=== PATIENT | male | born 1970 | race Caucasian/White ===

== ENCOUNTER 2017-05-30 09:16 | Emergency (ER) | payer OTHER ==
[~2017-05-30] VITALS: Ht 188 cm; Wt 95.0 kg
[2017-05-30] MEDS ORDERED: morphine 4 MG/ML VIAL IV STA (09:18)
[2017-05-30] MEDS ORDERED: ONDANSETRON 4 MG INJ IV STA (09:18)
[2017-05-30] MEDS ORDERED: SOD CHLORIDE 0.9% 1,000 ML IV STA (09:18)
[2017-05-30 09:37] VITALS: Ht 188 cm; Wt 95.0 kg
[2017-05-30] MEDS ORDERED: ARIP10TA13 PO (09:48)
[2017-05-30 10:08] LABS: ADD UMIC NO; UR ASCORBIC ACID NEGATIVE (NEGATIVE); UR BILIRUBIN (Dip) NEGATIVE (NEGATIVE); UR BLOOD (Dip) NEGATIVE (NEGATIVE); UR CLARITY CLEAR (CLEAR); UR COLOR YELLOW (YELLOW); UR GLUCOSE (Dip) NEGATIVE (NEGATIVE); UR KETONES (Dip) 1+ mg/dL (NEGATIVE); UR LEUKOCYTE ESTERASE (Dip) NEGATIVE Leu/ul (NEGATIVE); UR NITRITE (Dip) NEGATIVE (NEGATIVE); UR TOTAL PROTEIN (Dip) NEGATIVE (NEGATIVE); UR UROBILINOGEN (Dip) NEGATIVE (NEGATIVE)
[2017-05-30 10:12] LABS: BASOPHIL # 0.1 10^3/ul (0.0-0.1); BASOPHILS % 0.7 % (0.0-2.0); EOSINOPHILS # 0.1 10^3/ul (0.0-0.5); EOSINOPHILS % 0.8 % (0.0-7.0); HEMATOCRIT 46.5 % (42.0-52.0); HEMOGLOBIN 15.9 g/dl (14.0-18.0); LYMPHOCYTES # 1.5 10^3/ul (0.8-2.9); LYMPHOCYTES % 17.5 % (15.0-51.0); MEAN CORPUSCULAR HEMOGLOBIN 30.2 pg (29.0-33.0); MEAN CORPUSCULAR HGB CONC 34.2 g/dl (32.0-37.0); MEAN CORPUSCULAR VOLUME 88.2 fl (82.0-101.0); MONOCYTE # 0.6 10^3/ul (0.3-0.9); MONOCYTES % 6.6 % (0.0-11.0); NEUTROPHIL # 6.5 10^3/ul (1.6-7.5); NEUTROPHILS % 74.1 % (39.0-77.0); PLATELET COUNT 300 10^3/UL (140-415); RED BLOOD COUNT 5.27 10^6/ul (4.70-6.10); WHITE BLOOD COUNT 8.8 10^3/ul (4.8-10.8)
--- NOTE | 2017-05-30 10:43 | RADRPT ---
PROCEDURE: CT Abdomen and Pelvis without contrast. CLINICAL INDICATION: Abdominal pain TECHNIQUE: CT scan of the abdomen and pelvis was performed on a multidetector high-resolution CT s canner without intravenous contrast. Coronal and sagittal reformatted images were obtained from the axial source images. Images were reviewed on a high-resolution PACS workstation. The total exam CTD I equals 14mGy and the total exam DLP equals 878mGy-cm. One or more of the following dose reduction techniques were used: Automated exposure control, Adjustment of the mA and/or kV according to patien t size, and/or use of iterative reconstruction technique. DICOM images are available. COMPARISON: None. FINDINGS: Evaluation of the solid organs is limited given the lack of intravenous contrast administration. Bibasilar atelectasis. The unenhanced liver, pancreas, spleen, and adrenals are grossly unremarkable. No focal pericholecystic inflammatory changes. No hydronephrosis. No renal or ureteral stone. No bowel obstruction. The appendix is not visualized but there is no focal inflammatory stranding i n the right lower quadrant. No significant retroperitoneal lymphadenopathy or evidence of pneumoperitoneum. Central prostate trisha cifications. Prominent fat and vessel containing left inguinal hernia with inflammatory stranding and loculated f luid. Small right fat containing inguinal hernia. IMPRESSION: Prominent fat and vessel containing left inguinal hernia with inflammatory stranding and loculated f luid concerning for a strangulated hernia. No evidence of bowel herniation, bowel obstruction, or appendicitis. RPTAT: AA .Mehdi Knapp MD, Date Time Electronically viewed and signed by .Mehdi Knapp MD, MD on 05/30/2017 10:42 .T/
[2017-05-30 10:46] LABS: ALBUMIN 4.2 g/dl (3.3-4.9); ALBUMIN/GLOBULIN RATIO 1.16; BILIRUBIN,INDIRECT 0.5 mg/dl (0-1.1); BILIRUBIN,TOTAL 0.5 mg/dl (0.2-1.3); CALCIUM 10.1 mg/dl (8.4-10.2); CREATININE 1.08 mg/dl (0.61-1.24); POTASSIUM 4.2 mmol/L (3.5-5.1); TOTAL PROTEIN 7.8 g/dl (6.1-8.1)
[2017-05-30] MEDS ORDERED: HYDR-902 PO (11:13)
[2017-05-30] MEDS ORDERED: ONDA4TAB14 PO (11:13)
[2017-05-30 11:49] VITALS: BP 132/77; PULSE 94; RESP 18
--- NOTE | 2017-05-30 11:59 | ERD ---
ER Documentation Chief Complaint Chief Complaint NAUSEA VOMITING STARTED TODAY.LEFT GROIN PAIN HPI Patient is a 47-year-old male with hernia who presents with abdominal pain. The patient was brought in by ambulance. He had subjective fever and sweats. He had vomiting and diarrhea as well as abdominal pain which started 1.5 hours ago. He said that it is from a hernia in his left inguinal region which he has had for years. He has had no treatment as of yet. He said that he used meth 48 hours ago. Upon review of old medical records this is the patient's fifth visit to the ER since 2006. He does not currently have a primary doctor. ROS All systems reviewed and are negative except as per history of present illness. Medications Home Meds Active Scripts Ondansetron (Ondansetron Odt) 4 Mg Tab.rapdis, 4 MG PO Q6H Y for NAUSEA AND/OR VOMITING, #10 TAB Prov:WINSTON POON MD 05/30/17 Hydrocodone/Acetaminophen ([place] 10-325 Tablet) 1 Each Tablet, 1 TAB PO Q6H Y for PAIN, #7 TAB Prov:WINSTON POON MD 05/30/17 Reported Medications Aripiprazole* (Abilify*) 10 Mg Tablet, 10 MG PO DAILY, #30 TAB 05/30/17 Allergies Allergies: Coded Allergies: No Known Drug Allergies (Verified Allergy, Unknown, 05/30/17) PMhx/Soc History of Surgery: Yes (R ARM,RIGHT GROIN HERNIA REPAIR) Anesthesia Reaction: No Hx Neurological Disorder: No Hx Respiratory Disorders: No Hx Cardiac Disorders: No Hx Psychiatric Problems: No Hx Miscellaneous Medical Probl: Yes (HEP C) Hx Alcohol Use: Yes Hx Substance Use: Yes Hx Tobacco Use: Yes Smoking Status: Current some day smoker FmHx Family History: No diabetes Physical Exam Vitals Vital Signs Date Time Temp Pulse Resp B/P Pulse Ox O2 Delivery O2 Flow Rate FiO2 05/30/17 11:49 94 18 132/77 98 Room Air 05/30/17 09:37 98.7 71 18 133/89 98 Physical Exam Const: Moderate distress secondary to pain Head: Atraumatic Eyes: Normal Conjunctiva ENT: Normal External Ears, Nose and Mouth. Neck: Full range of motion..~ No meningismus. Resp: Clear to auscultation bilaterally Cardio: Regular rate and rhythm, no murmurs Abd: Inguinal hernia in the left groin which is easily reducible with no color changes Skin: No petechiae or rashes Back: No midline or flank tenderness Ext: No cyanosis, or edema Neur: Awake and alert Psych: Normal Mood and Affect Result Diagram: 05/30/17 0959 05/30/17 0959 Results 24 hrs Laboratory Tests Test 05/30/17 09:59 05/30/17 10:00 White Blood Count 8.810^3/ul Red Blood Count 5.2710^6/ul Hemoglobin 15.9g/dl Hematocrit 46.5% Mean Corpuscular Volume 88.2fl Mean Corpuscular Hemoglobin 30.2pg Mean Corpuscular Hemoglobin Concent 34.2g/dl Red Cell Distribution Width 12.0% Platelet Count 64818^3/UL Mean Platelet Volume 9.0fl Neutrophils % 74.1% Lymphocytes % 17.5% Monocytes % 6.6% Eosinophils % 0.8% Basophils % 0.7% Nucleated Red Blood Cells % 0.0/100WBC Neutrophils # 6.510^3/ul Lymphocytes # 1.510^3/ul Monocytes # 0.610^3/ul Eosinophils # 0.110^3/ul Basophils # 0.110^3/ul Nucleated Red Blood Cells # 0.010^3/ul Sodium Level 145mmol/L Potassium Level 4.2mmol/L Chloride Level 107mmol/L Carbon Dioxide Level 24mmol/L Anion Gap 18 Blood Urea Nitrogen 21mg/dl Creatinine 1.08mg/dl Glucose Level 120mg/dl Calcium Level 10.1mg/dl Total Bilirubin 0.5mg/dl Direct Bilirubin 0.00mg/dl Indirect Bilirubin 0.5mg/dl Aspartate Amino Transf (AST/SGOT) 28IU/L Alanine Aminotransferase (ALT/SGPT) 50IU/L Alkaline Phosphatase 83IU/L Total Protein 7.8g/dl Albumin 4.2g/dl Globulin 3.60g/dl Albumin/Globulin Ratio 1.16 Lipase 90U/L Urine Color YELLOW Urine Clarity CLEAR Urine pH 5.0 Urine Specific [place] 1.020 Urine Ketones 1+mg/dL Urine Nitrite NEGATIVEmg/dL Urine Bilirubin NEGATIVEmg/dL Urine Urobilinogen NEGATIVEmg/dL Urine Leukocyte Esterase NEGATIVELeu/ul Urine Hemoglobin NEGATIVEmg/dL Urine Glucose NEGATIVEmg/dL Urine Total Protein NEGATIVEmg/dl Current Medications Medications (Trade) Dose Ordered Sig/Alonzo Route PRN Reason Start Time Stop Time Status Last Admin Dose Admin Sodium Chloride (NS) 1,000 ml @ 1,000 mls/hr Q1H STAT IV 05/30/17 09:18 05/30/17 10:17 DC 05/30/17 09:57 Morphine Sulfate (morphine) 4 mg ONCE STAT IV 05/30/17 09:18 05/30/17 09:20 DC 05/30/17 09:56 Ondansetron HCl (Zofran Inj) 4 mg ONCE STAT IV 05/30/17 09:18 05/30/17 09:20 DC 05/30/17 09:56 Procedures/MDM CT shows a possible strangulate hernia per radiology. Smoking Cessation Therapy: Pt. was lectured for greater than 3 minutes on the health risks of continued smoking and the benefits of cessation. Patient is a 47-year-old male with previous hernia who presents with abdominal pain and vomiting. CT scan showed a possible strangulate hernia but I was easily able to reduce the hernia at the bedside and there is no sign of strangulation. He was given pain and nausea medicine as well as fluids and feels much better. He has no complaints at this time and he was easily able to walk out of the emergency department. He will be given a prescription for [place] and Zofran but will need to follow-up with Dr. Martinez from surgery for elective hernia repair. I doubt bowel obstruction, strangled hernia, or appendicitis. Departure Diagnosis: Primary Impression: Hernia Additional Impression: Nausea and vomiting Vomiting type: unspecified Vomiting Intractability: non-intractable Qualified Code: R11.2 - Non-intractable vomiting with nausea, unspecified vomiting type Condition: Fair Patient Instructions: Nausea and Vomiting-Adult, Hernia (Inguinal, Ventral, Umbilical) Referrals: SADIQ MARTINEZ MD Additional Instructions: SPECIALIST: YOU HAVE A MEDICAL CONDITION WHICH REQUIRES YOU TO SEE A SPECIALIST WITHIN THE NEXT 1-2 DAYS. PLEASE FOLLOW UP WITH YOUR PRIMARY PHYSICIAN FOR REFFERAL.IF YOU DO NOT HAVE A PRIMARY CARE PHYSICIAN AND/OR YOU CAN NOT AFFORD TO SEE A PHYSICIAN THE FOLLOWING RESOURCES HAVE BEEN SUPPLIED TO YOU. IT IS YOUR RESPONSIBILITY TO BE SEEN BY THE SPECIALIST WINSTON POON MD May 30, 2017 11:59
== END 2017-05-30 11:51 | disposition home or self-care (01) ==
LOC: E/R 09:16
DX: K40.90 Unilateral inguinal hernia, without obstruction or gangrene, not specified as recurrent (principal); R11.2 Nausea with vomiting, unspecified; F17.210 Nicotine dependence, cigarettes, uncomplicated
CPT/HCPCS: 74176; 80053; 81003; 83690; 85025; J2270; J2405; J7030; 36415; 96374; 96375

== ENCOUNTER 2017-08-26 13:24 | Emergency (ER) | END 2017-08-26 18:39 | disposition left against medical advice (07) ==

== ENCOUNTER 2019-03-08 12:38 | Emergency (ER) | payer OTHER ==
[~2019-03-08] VITALS: Ht 193 cm; Wt 91.8 kg
[~2019-03-08 12:38] MED LIST: ARIP10TA12 PO; CEPH-443 PO; HYDR-3980 PO; HYDR-4011 PO; IBUP-1542 PO; ONDA4TAB14 PO
[2019-03-08] MEDS ORDERED: SOD CHLORIDE 0.9% 2,000 ML IV STA (13:05)
[2019-03-08] MEDS ORDERED: KETOROLAC 15 MG INJ IV STA (13:05)
[2019-03-08 13:25] VITALS: Ht 193 cm; Wt 91.8 kg
[2019-03-08 15:22] VITALS: BP 143/97; PULSE 77; RESP 16
== END 2019-03-08 15:22 | disposition home or self-care (01) ==
LOC: E/R 12:38
DX: R10.9 Unspecified abdominal pain (principal); R31.9 Hematuria, unspecified; R30.0 Dysuria; Z87.891 Personal history of nicotine dependence
CPT/HCPCS: 36415; 74176; 80053; 81001; 82550; 83605; 85025; 96374; J1885; J7030; Z7502